=== PATIENT | male | born 1965 | race African-American/Black ===

== ENCOUNTER 2019-03-23 15:42 | Emergency (ER) | payer BC ==
[2019-03-23] MEDS ORDERED: ACETAMINOPHEN 325 MG TABLET PO ONE (15:59)
[2019-03-23 16:14] VITALS: BP 129/88
--- NOTE | 2019-03-23 17:00 | RADIOLOGY REPORT (SQ) ---
EXAM DESCRIPTION: KNEE RIGHT 4 VIEWS COMPLETED DATE/TIME: 03/23/2019 4:21 pm REASON FOR STUDY: stepped in hole, Medial knee pain COMPARISON: None. NUMBER OF VIEWS: Four views right knee. LIMITATIONS: None. FINDINGS: There is no acute or significant bone, joint or soft tissue abnormality. OTHER: No other significant finding. IMPRESSION: NORMAL STUDY. TECHNICAL DOCUMENTATION: JOB ID: [id number] Reading location - IP/workstation name: [email or web address]
--- NOTE | 2019-03-23 17:03 | ER Document Report ---
HPI - HPI Patient complains to provider of: r knee pain Time Seen by Provider: 03/23/19 15:50 Onset: Yesterday Onset/Duration: Gradual Quality of pain: Achy Pain Level: 3 Context: Patient presents complaining of right knee pain. Patient states he stepped into a hole yesterday twisting his right knee. Associated Symptoms: Other - Right knee pain Exacerbated by: Standing, Movement, Walking Relieved by: Denies Similar symptoms previously: No Recently seen / treated by doctor: No - ROS ROS below otherwise negative: Yes Systems Reviewed and Negative: Yes All other systems reviewed and negative - CONSTITUTIONAL Constitutional: DENIES: Fever - NEURO Neurology: DENIES: Weakness - GASTROINTESTINAL Gastrointestinal: DENIES: Nausea - MUSCULOSKELETAL Musculoskeletal: REPORTS: Extremity pain - R knee - DERM Skin Color: Normal Skin Problems: None Past Medical History - General Information source: Patient - Social History Smoking Status: Current Every Day Smoker Smoking Education Provided: Yes Frequency of alcohol use: None Drug Abuse: None Occupation: [employer] service Lives with: Family Family History: None Patient has suicidal ideation: No Patient has homicidal ideation: No - Past Medical History Cardiac Medical History: Reports: Hx Hypertension Renal/ Medical History: Denies: Hx Peritoneal Dialysis GI Medical History: Reports: Hx Ulcerative Colitis Surgical Hx: Negative - Immunizations Hx Diphtheria, Pertussis, Tetanus Vaccination: Yes Vertical Provider Document - CONSTITUTIONAL Agree With Documented VS: Yes Exam Limitations: No Limitations General Appearance: WD/WN, No Apparent Distress - INFECTION CONTROL TRAVEL OUTSIDE OF THE [place] IN LAST 30 DAYS: No - HEENT HEENT: Atraumatic, Normocephalic - NECK Neck: Normal Inspection - RESPIRATORY Respiratory: No Respiratory Distress - CARDIOVASCULAR Pulses: Normal: Dorsalis pedis - MUSCULOSKELETAL/EXTREMETIES Musculoskeletal/Extremeties: MAEW, FROM, Tender - Right knee joint tenderness to medial compartment and medial joint line, no effusion, no laxity with varus or valgus maneuvers. Normal skin color and temperature overlying joint., No Edema - NEURO Level of Consciousness: Awake, Alert, Appropriate - DERM Integumentary: Warm, Dry, No Rash Course - Vital Signs Vital signs: Temp Pulse Resp BP Pulse Ox 98.2 F 80 18 129/88 H 99 03/23/19 16:06 03/23/19 16:06 03/23/19 16:06 03/23/19 16:06 03/23/19 16:06 - Diagnostic Test Radiology reviewed: Pending, Image reviewed Procedures - Immobilization Right Knee Pre-Proc Neuro Vasc Exam: Normal Immobilizer type: Knee immobilizer Performed by: PCT Post-Proc Neuro Vasc Exam: Normal Alignment checked and good: Yes Discharge - Discharge Clinical Impression: Right knee sprain Qualifiers: Encounter type: initial encounter Involved ligament of knee: unspecified ligament Qualified Code(s): S83.91XA - Sprain of unspecified site of right knee, initial encounter Condition: Stable Disposition: HOME, SELF-CARE Instructions: Use of Crutches ([facility]), Ice & Elevation ([facility]), Knee Immobilizing Splint ([facility]), Sprained Knee ([facility]) Additional Instructions: Return immediately for any new or worsening symptoms Followup with your primary care provider, call tomorrow to make a followup appointment Weightbearing as tolerated Follow-up with orthopedics for any persistent pain or problems Prescriptions: Diclofenac Sodium 4 gm TP QID PRN #100 gel..gram. PRN Reason: Forms: Return to Work Referrals: LINO WALLER MD [Primary Care Provider] - Follow up as needed [facility] [Provider Group] - Follow up tomorrow
== END 2019-03-23 17:05 | disposition home or self-care (01) ==
LOC: ER 15:42
DX: S83.91XA Sprain of unspecified site of right knee, initial encounter (principal); M25.561 Pain in right knee; X50.0XXA Overexertion from strenuous movement or load, initial encounter; Y93.H9 Activity, other involving exterior property and land maintenance, building and construction; I10 Essential (primary) hypertension; F17.200 Nicotine dependence, unspecified, uncomplicated
CPT/HCPCS: 99283; 73564; L1830

== ENCOUNTER 2019-07-18 17:04 | Emergency (ER) | payer BC ==
[2019-07-18 17:57] VITALS: BP 122/81
--- NOTE | 2019-07-18 19:25 | ER Document Report ---
HPI - HPI Patient complains to provider of: right shoulder pain x 1 week and right hip pain Time Seen by Provider: 07/18/19 19:19 Onset/Duration: Gradual, Persistent Quality of pain: Achy Severity: Moderate Pain Level: 2 Context: 53-year-old male with a history of hypertension, ulcerative colitis, iron deficiency anemia, here for right shoulder/neck pain x1 week. 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 He also complains of right low back pain that radiates down to his right hip. No numbness, weakness, or tingling. No fall or trauma. No prior history of sciatica. He has not sought care until now. His primary care doctor is Dr. Deras. He is right-handed. He does take occasional Motrin which spears s help a little bit. No fevers, saddle anesthesia, incontinence, or any other sx. No pain anywhere else. he is able to walk. Denies any UTI symptoms. No testicular pain/swelling. No history of renal stones. No other complaints at this time. No history of diabetes or asthma. no spinal surgeries. no iv drug use. no blood thinners otherwise. not on any immunosuppressants. No recent antibiotics or steroids. Exacerbated by: Movement Relieved by: Remaining still Similar symptoms previously: Yes Recently seen / treated by doctor: No - ROS Systems Reviewed and Negative: Yes All other systems reviewed and negative - To include 10 systems, unless mentioned in the hpi. Past Medical History - General Information source: Patient - 2 - Social History Smoking Status: Current Every Day Smoker Chew tobacco use (# tins/day): No Frequency of alcohol use: None Drug Abuse: None Lives with: Spouse/Significant other Family History: Reviewed & Not Pertinent Patient has suicidal ideation: No Patient has homicidal ideation: No - Past Medical History Cardiac Medical History: Reports: Hx Hypertension Endocrine Medical History: Denies: Hx Diabetes Mellitus Type 1, Hx Diabetes Mellitus Type 2 Renal/ Medical History: Denies: Hx Peritoneal Dialysis GI Medical History: Reports: Hx Ulcerative Colitis - Immunizations Immunizations up to date: Yes Hx Diphtheria, Pertussis, Tetanus Vaccination: Yes Vertical Provider Document - CONSTITUTIONAL Agree With Documented VS: Yes Exam Limitations: No Limitations Notes: Vital signs: All vital signs were reviewed per nursing notes. Gen. Appearance: Nontoxic, patient of stated age, sitting comfortably in the bed. pleasant, middle aged black male, smiling, speaking in full sentences, in no sign of pain or resp distress, nontoxic, at bedside Psychiatric: Alert and oriented x3, pleasant and very conversational, normal affect. Skin: Warm, pink, dry, normal turgor, no rashes. no grossly visible overlying skin changes or signs of trauma. HEENT: Normocephalic, atraumatic, no tang signs. no raccoon eyes, pupils are equal and reactive to light, extraocular muscles intact, mucosal membranes moist, pink conjunctiva, no pharyngeal erythema no tonsillar exudate. no drooling, tripoding, voice change or stridor, uvula midline. tongue protrudes midline Neck: Supple, no midline tenderness, no step-offs or deformities. There is mild tenderness to the right trapezius and right paracervical musculature. Spasm noted. Palpation here reproduces patient's pain exactly. No overlying skin changes to suggest trauma. No lymphadenopathy. full rom and full strength. no meningeal signs. no signs of central cord syndrome CV: Regular rate and rhythm, Lungs: Clear to auscultation bilaterally, no wheezes, symmetrical chest rise. no chest wall ttp Abdomen: Soft, nontender, nondistended, good bowel sounds, no rebound, rigid ity, guarding or peritoneal signs. No CVA tenderness bilaterally. This is a nonacute abdomen. No tenderness over McBurney's point. no grossly visible or palpable abdominal hernias Genitalia: pt deferred Rectal: deferred; however, no sign of loss of bowel or bladder, no soiling of clothing Back: There is increased tissue tension over the paralumbar musculature on the right side. Palpation to this region did reproduce patient's pain exactly. There is no tenderness to palpation along the midline of the cervical, thoracic or lumbar spine. There are no step-offs or deformities noted. no overlying skin changes. Extremities: Distal pulses two out of four, good capillary refill, no edema, cyanosis or clubbing. full rom and full strength in all extremities with pain on right hip flexion and extension. no swelling or ttp of the extremities. normal gait. good hand leather shaver. neg reggie sign. neg stewart squeeze. no drop foot. no shortening or rotation of the limbs. no obvious deformities. Negative drop can test. Neuro: Cranial nerves II through XII intact, normal speech, cerebellar function intact. Symmetric smile and faces. reflexes wnl. motor and sensation intact to light touch. - INFECTION CONTROL TRAVEL OUTSIDE OF THE [place] IN LAST 30 DAYS: No Course - Re-evaluation Re-evalutation: 07/18/19 19:45 Pt here for likely right cervical radiculopathy/strain and right low back pain with right sided sciatica x 1 wk. no fall or trauma or mildine spinal ttp or signs/sx of cauda equina, spinal cord involvement, or central cord syndrome so no imaging was done. he responded well to tx here. will dc with robaxin and prednisone. gave medication precautions. tylenol prn pain. ice/heat to the area. advised to f/u with pcp in 1-2 days. return for any worsening symptoms. vss. well appearing. satting well on ra. neurononfocal. pt understands and agrees to plan. On reexam, pt improved with tx listed. remained stable. nontoxic. well appearing. pain controlled. tolerating po. requesting to go home. Documentation achieved through voice recording which may lead to some occasional accidental typographical errors. Extensive efforts have been made to proof read documentation to make sure these are the least as possible. - Vital Signs Vital signs: Temp Pulse Resp BP Pulse Ox 98.4 F 65 16 122/81 100 07/18/19 17:55 07/18/19 17:55 07/18/19 17:55 07/18/19 17:55 07/18/19 17:55 Temp Pulse Resp BP Pulse Ox 07/18/19 17:55 98.4 F 65 16 122/81 100 Discharge - Discharge Clinical Impression: Right cervical radiculopathy, Strain of cervical portion of right trapezius muscle Low back pain with right-sided sciatica Qualifiers: Chronicity: acute Back pain laterality: right Qualified Code(s): M54.41 - Lumbago with sciatica, right side Condition: Good Disposition: HOME, SELF-CARE Instructions: Neck Injury (Cervical Strain) ([facility]), Sciatica ([facility]) Additional Instructions: Follow-up with PCP in 1 to 2 days. Ice/heat to the area. Do not work, drive, operate machinery while taking the muscle relaxers. Return for any worsening symptoms. tylenol as needed for any pain. take the medication as prescribed. light duty for the next 2 days with no heavy lifting and if still having symptoms after the next two days he needs to be reevaluated by his pcp. Prescriptions: Prednisone [Deltasone 10 mg Tablet] 40 mg PO DAILY 5 Days #20 tablet Methocarbamol [Robaxin 500 mg Tablet] 1,000 mg PO QID PRN #40 tablet PRN Reason: For Pain Forms: Return to Work Referrals: LINO WALLER MD [Primary Care Provider] - Follow up in 3-5 days
[2019-07-18] MEDS ORDERED: PREDNISONE 20 MG TABLET PO ONE (19:47)
[2019-07-18] MEDS ORDERED: METHOCARBAMOL 500 MG TABLET PO ONE (19:47)
== END 2019-07-18 20:43 | disposition home or self-care (01) ==
LOC: ER 17:04
DX: S16.1XXA Strain of muscle, fascia and tendon at neck level, initial encounter (principal); M54.12 Radiculopathy, cervical region; M54.41 Lumbago with sciatica, right side; M25.511 Pain in right shoulder; M25.551 Pain in right hip; M54.2 Cervicalgia; X58.XXXA Exposure to other specified factors, initial encounter; I10 Essential (primary) hypertension; F17.200 Nicotine dependence, unspecified, uncomplicated
CPT/HCPCS: 99283; J7512

== ENCOUNTER 2019-10-13 07:00 | Emergency (ER) | payer BC ==
[2019-10-13 07:47] LABS: APPEARANCE,URINE CLOUDY; BILIRUBIN,URINE NEGATIVE (NEGATIVE); COLOR,URINE YELLOW; GLUCOSE, URINE NEGATIVE (NEGATIVE); KETONES,URINE NEGATIVE (NEGATIVE); LEUKOCYTE ESTERASE,URINE NEGATIVE (NEGATIVE); NITRITE,URINE NEGATIVE (NEGATIVE); PROTEIN,URINE 30 mg/dL (NEGATIVE); URINE SPECIFIC GRAVITY 1.024; UROBILINOGEN,URINE NEGATIVE mg/dL (<2.0)
--- NOTE | 2019-10-13 08:28 | ER Document Report ---
ED General - General Chief Complaint: Abdominal Pain Stated Complaint: HIP AND LOWER BACK PAIN Time Seen by Provider: 10/13/19 08:09 Primary Care Provider: LINO WALLER MD [Primary Care Provider] - Follow up in 3-5 days Notes: 54-year-old male with history of ulcerative colitis, BPH, hypertension presents with groin pain for 3 days. Patient has been having urinating with dribbling. Patient denies any dysuria, hematuria, frequency, abdominal pain nausea/vomiting, diarrhea, constipation, testicular swelling/pain, penile swelling/pain/discharge. Patient denies ever having difficulty urinating. Patient states he does work in [employer] and does a lot of heavy lifting. Patient states he was recently put on Flomax 0.4 mg due to his prostate last month. TRAVEL OUTSIDE OF THE [place] IN LAST 30 DAYS: No - Related Data Allergies/Adverse Reactions: No Known Allergies Allergy (Verified 03/23/19 15:43) Past Medical History - Social History Smoking Status: Former Smoker Family History: Reviewed & Not Pertinent Patient has suicidal ideation: No Patient has homicidal ideation: No - Past Medical History Cardiac Medical History: Reports: Hx Hypertension Endocrine Medical History: Denies: Hx Diabetes Mellitus Type 1, Hx Diabetes Mellitus Type 2 Renal/ Medical History: Denies: Hx Peritoneal Dialysis GI Medical History: Reports: Hx Ulcerative Colitis - Immunizations Immunizations up to date: Yes Hx Diphtheria, Pertussis, Tetanus Vaccination: Yes Review of Systems - Review of Systems Notes: Constitutional: Negative for fever. HENT: Negative for sore throat. Eyes: Negative for visual changes. Cardiovascular: Negative for chest pain. Respiratory: Negative for shortness of breath. Gastrointestinal: Negative for abdominal pain, vomiting or diarrhea. Genitourinary: Positive for groin pain and dribbling with urinating. Negative for dysuria. Musculoskeletal: Negative for back pain. Skin: Negative for rash. Neurological: Negative for headaches, weakness or numbness. 10 point ROS negative except as marked above and in HPI. Physical Exam - Vital signs Vitals: Temp Pulse Resp BP Pulse Ox 97.2 F 74 16 170/103 H 99 10/13/19 07:04 10/13/19 07:04 10/13/19 07:04 10/13/19 07:04 10/13/19 07:04 - Notes Notes: Drawing Box Tender Malou PCT GENERAL: Well-appearing, well-nourished and in no acute distress. HEAD: Atraumatic, normocephalic. EYES: Extraocular movements intact, sclera anicteric, conjunctiva are normal. NECK: Normal range of motion, supple without lymphadenopathy or JVD. LUNGS: Breath sounds clear to auscultation bilaterally and equal. No wheezes rales or rhonchi. HEART: Regular rate and rhythm without murmurs, rubs or gallops. ABDOMEN: Soft, nontender. No guarding, no rebound. No masses appreciated. : Mild swelling to right inguinal canal with mild tenderness. No swelling to testicles. EXTREMITIES: Normal range of motion, no pitting or edema. No clubbing or cyanosis. NEUROLOGICAL: Cranial nerves II through XII grossly intact. Normal speech, normal gait. PSYCH: Normal mood, normal affect. SKIN: Warm, Dry, normal turgor, no rashes or lesions noted. Course - Re-evaluation Re-evalutation: 10/13/19 54-year-old male presents with groin pain that started Efrain. Patient does a lot of the lifting at work. Patient also states he has been having some dribbling with urinating. Patient denies any dysuria, hematuria, nausea or vomiting, abdominal pain, fever/chills. Abdomen exam soft nontender. Mild swelling noted to right inguinal canal with mild tenderness. UA shows protein without infection. Ultrasound of scrotum ordered. 10/13/19 13:37 US shows epidydimitis. UpToDate consulted, recommendation for Levoquin 500 mg PO once daily for 10 days. 10/13/19 13:38 Discussed results with pt and pt's . Return precautions discussed. Close follow up with PCP. Pt given prescription for Levaquin 500 mg once daily for 10 days. Pt voices understanding and agrees with plan of care. - Vital Signs Vital signs: Temp Pulse Resp BP Pulse Ox 97.7 F 74 18 139/110 H 99 10/13/19 13:45 10/13/19 13:45 10/13/19 13:45 10/13/19 13:45 10/13/19 13:45 - Laboratory Laboratory results interpreted by me: 10/13/19 07:28 Urine Protein 30 H Urine Ascorbic Acid 20 H Discharge - Discharge Clinical Impression: Epididymitis Condition: Stable Disposition: HOME, SELF-CARE Instructions: Epididymitis ([facility]) Additional Instructions: Please take Levaquin as prescribed and finish all doses even if you feel better. Please follow-up with your primary care doctor in 3 to 5 days. Return to ER for any worsening symptoms including fever, difficulty urinating, worsening pain, vomiting or any other symptoms that are concerning to you. Prescriptions: Levofloxacin [Levaquin 500 mg Tablet] 500 mg PO DAILY #10 tablet Forms: Parent Work Note Referrals: LINO WALLER MD [Primary Care Provider] - Follow up in 3-5 days
--- NOTE | 2019-10-13 12:34 | RADIOLOGY REPORT (SQ) ---
EXAM DESCRIPTION: U/S SCROTUM W/DOPPLER COMPLETED DATE/TIME: 10/13/2019 11:46 am REASON FOR STUDY: groin pain, difficulty urinating COMPARISON: None. TECHNIQUE: Static and realtime warner scale imaging of the scrotum and testes. Selected color Doppler and spectral images recorded to document blood flow. LIMITATIONS: None. FINDINGS: RIGHT: TESTICLE: The right testicle measures 3.7 x 2.5 x 1.9 cm and on Doppler there is intact arterial infl ow and venous outflow within the testicular stroma. There is no testicular mass. EPIDIDYMIS: The epididymis measures 1.9 x 1 x 0.9 cm and it is heterogeneous in echotexture. There i s an anechoic structure within the epididymal head that measures 5 x 4 x 4 mm consistent with a cyst. HYDROCELE OR VARICOCELE: No. HERNIA OR EXTRA-TESTICULAR MASS: No. OTHER: There is a prominent right inguinal lymph node that measures 8 mm in transverse diameter. LEFT: TESTICLE: The right testicle measures 3.2 x 2.2 x 1.7 cm and on Doppler there is intact arterial infl ow and venous outflow within the testicular stroma. There is no testicular mass. EPIDIDYMIS: The epididymis measures 0.7 x 0.5 x 1.1 cm. There is an anechoic structure in the epidid ymal head that measures 3 x 3 x 3 mm consistent with a cyst. HYDROCELE OR VARICOCELE: Varicocele that measures up to 3 mm with Valsalva maneuvers. HERNIA OR EXTRA-TESTICULAR MASS: No. OTHER: No other finding. IMPRESSION: 1. Heterogeneity of the epididymis - correlate clinically for epididymitis. 2. No testicular mass or evidence of testicular torsion. 3. Left varicocele. TECHNICAL DOCUMENTATION: JOB ID: [id number] [employer]- All Rights Reserved Reading location - IP/workstation name: [email or web address]
[2019-10-13 13:45] VITALS: BP 139/110
--- NOTE | 2019-10-13 15:06 | EKG REPORT ---
SEVERITY:- ABNORMAL ECG - SINUS RHYTHM PROBABLE LEFT ATRIAL ABNORMALITY LEFT VENTRICULAR HYPERTROPHY : Confirmed by: Idalia Jean-Baptiste MD 13-Oct-2019 15:06:10
== END 2019-10-13 13:46 | disposition home or self-care (01) ==
LOC: ER 07:00
DX: N45.1 Epididymitis (principal); R10.9 Unspecified abdominal pain; M54.5 Low back pain; N39.43 Post-void dribbling; R10.30 Lower abdominal pain, unspecified; I10 Essential (primary) hypertension; Z87.891 Personal history of nicotine dependence
CPT/HCPCS: 76870; 81001; 93005; 93010; 93976; 99284

== ENCOUNTER → 2019-12-22 | Outpatient (CLI) | payer OTHER ==
[2019-12-22 12:57] LABS: ABSOLUTE BASOPHILS # (AUTO) 0.1 10^3/uL (0.0-0.2); ABSOLUTE EOSINOPHILS # (AUTO) 0.1 10^3/uL (0.0-0.6); ABSOLUTE LYMPHOCYTES (AUTO) 1.1 10^3/uL (0.5-4.7); ABSOLUTE MONOCYTES (AUTO) 0.4 10^3/uL (0.1-1.4); ABSOLUTE NEUT (AUTO) 2.7 10^3/uL (1.7-8.2); BASOPHILS % (AUTO) 1.3 % (0-2); EOSINOPHILS % (AUTO) 3.2 % (0-6); HEMOGLOBIN 13.7 g/dL (13.5-17.0); LYMPHOCYTES % (AUTO) 24.5 % (13-45); MEAN CORPUSCULAR HEMOGLOBIN 29.1 pg (27.0-33.4); MEAN CORPUSCULAR HGB CONC 33.4 g/dL (32.0-36.0); MEAN CORPUSCULAR VOLUME 87 fl (80-97); MONOCYTES % (AUTO) 8.8 % (3-13); PLATELET COUNT 188 10^3/uL (150-450); RED BLOOD COUNT 4.72 10^6/uL (4.35-5.55); RED CELL DISTRIBUTION WIDTH 13.5 % (11.5-14.0); SEGMENTED NEUTROPHILS % (AUTO) 62.2 % (42-78); TOTAL CELLS COUNTED % (AUTO) 100 %; WHITE BLOOD COUNT 4.4 10^3/uL (4.0-10.5)
[2019-12-22 13:07] LABS: APPEARANCE,URINE CLEAR; BILIRUBIN,URINE NEGATIVE (NEGATIVE); COLOR,URINE YELLOW; GLUCOSE, URINE NEGATIVE (NEGATIVE); KETONES,URINE NEGATIVE (NEGATIVE); LEUKOCYTE ESTERASE,URINE NEGATIVE (NEGATIVE); NITRITE,URINE NEGATIVE (NEGATIVE); PROTEIN,URINE NEGATIVE (NEGATIVE); URINE SPECIFIC GRAVITY 1.025; UROBILINOGEN,URINE NEGATIVE mg/dL (<2.0)
[2019-12-22 13:17] LABS: ALBUMIN 4.4 g/dL (3.5-5.0); ALKALINE PHOSPHATASE 82 U/L (38-126); ANION GAP 9 (5-19); ASPARTATE AMINO TRANSFERASE 29 U/L (17-59); BILIRUBIN,DIRECT 0.2 mg/dL (0.0-0.4); BILIRUBIN,TOTAL 0.5 mg/dL (0.2-1.3); BLOOD UREA NITROGEN 15 mg/dL (7-20); CALCIUM 9.3 mg/dL (8.4-10.2); CARBON DIOXIDE 33 mmol/L (22-30); CHLORIDE 103 mmol/L (98-107); CHOLESTEROL 141.69 mg/dL (0-200); GLUCOSE 75 mg/dL (75-110); POTASSIUM 3.8 mmol/L (3.6-5.0); TOTAL PROTEIN 7.9 g/dL (6.3-8.2); TRIGLYCERIDES 77 mg/dL (<150)
[2019-12-22 13:28] LABS: DIRECT LDL 64 mg/dL (<100)
== END ==
LOC: CCC 11:25
DX: I10 Essential (primary) hypertension (principal); D50.9 Iron deficiency anemia, unspecified; K51.90 Ulcerative colitis, unspecified, without complications
CPT/HCPCS: 36415; 80053; 80061; 81001; 83735; 84153; 85025

== ENCOUNTER 2020-05-07 19:24 | Emergency (ER) | payer OTHER ==
--- NOTE | 2020-05-07 20:26 | ER Document Report ---
HPI - HPI Time Seen by Provider: 05/07/20 20:09 Pain Level: 3 Context: Patient is a 54-year-old male who presents to the emergency department with a chief complaint of bilateral hand pain. Patient states that his pain started about 2 weeks ago. He denies any injury. 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 Patient states that he tried using arthritis gloves, but had little of his symptoms. She has past medical history of hypertension. - ROS Systems Reviewed and Negative: Yes All other systems reviewed and negative - CONSTITUTIONAL Constitutional: DENIES: Fever, Chills - EENT EENT: DENIES: Sore Throat, Ear Pain - RESPIRATORY Respiratory: DENIES: Trouble Breathing, Coughing - URINARY Urinary: DENIES: Dysuria, Urgency - MUSCULOSKELETAL Musculoskeletal: REPORTS: Extremity pain - Bilateral hand - DERM Skin Color: Normal Skin Problems: None Past Medical History - General Information source: Patient - Social History Smoking Status: Current Every Day Smoker Family History: Reviewed & Not Pertinent - Past Medical History Cardiac Medical History: Reports: Hx Hypertension Endocrine Medical History: Denies: Hx Diabetes Mellitus Type 1, Hx Diabetes Mellitus Type 2 Renal/ Medical History: Denies: Hx Peritoneal Dialysis GI Medical History: Reports: Hx Ulcerative Colitis - Immunizations Immunizations up to date: Yes Hx Diphtheria, Pertussis, Tetanus Vaccination: Yes Vertical Provider Document - CONSTITUTIONAL Agree With Documented VS: Yes Exam Limitations: No Limitations General Appearance: No Apparent Distress - INFECTION CONTROL TRAVEL OUTSIDE OF THE [place] IN LAST 30 DAYS: No - HEENT HEENT: Atraumatic, Normocephalic, PERRLA - RESPIRATORY Respiratory: No Respiratory Distress - CARDIOVASCULAR Cardiovascular: Regular Rate, Regular Rhythm Pulses: Normal: Radial - MUSCULOSKELETAL/EXTREMETIES Musculoskeletal/Extremeties: FROM, Tender - NEURO Level of Consciousness: Awake, Alert, Appropriate Motor/Sensory: No Motor Deficit, No Sensory Deficit - DERM Integumentary: Warm, Dry, No Rash Course - Re-evaluation Re-evalutation: 05/07/20 21:58 Hand x-rays are unremarkable. Patient has normal strength in all extremities. Patient is able to flex and extend all digits with no difficulty. Capillary refill less than 3 seconds. Radial pulse 2+. No vascular compromise noted. Patient will be started on Tylenol to help with possible arthritis pain. Follow-up precautions were given. Verbal discharge instructions were given to the patient. They verbalized understanding. They are stable for discharge. - Vital Signs Vital signs: Temp Pulse Resp BP Pulse Ox 97.9 F 69 16 100/77 99 05/07/20 20:08 05/07/20 19:47 05/07/20 19:47 05/07/20 19:47 05/07/20 19:47 Discharge - Discharge Clinical Impression: Bilateral hand pain Condition: Stable Disposition: HOME, SELF-CARE Additional Instructions: You were seen today in the emergency department for hand pain. Your pain is most likely due to your line of work. Take extra strength Tylenol for your pain. Follow-up with your primary care provider in regards to this visit. Forms: Return to Work Referrals: [facility] [Primary Care Provider] - Follow up as needed
--- NOTE | 2020-05-07 21:14 | RADIOLOGY REPORT (SQ) ---
XR HAND 3 VIEWS BILATERAL CLINICAL STATEMENT: bilateral hand pain COMPARISON: None FINDINGS: Bony alignment is anatomic. There is no fracture or dislocation. The soft tissues are unremarkable. No significant advanced degenerative changes. IMPRESSION: No fracture.
[2020-05-07 22:04] VITALS: BP 118/79
== END 2020-05-07 22:03 | disposition home or self-care (01) ==
LOC: ER 19:24
DX: M79.642 Pain in left hand (principal); M79.641 Pain in right hand; I10 Essential (primary) hypertension; F17.200 Nicotine dependence, unspecified, uncomplicated
CPT/HCPCS: 99283

== ENCOUNTER → 2020-07-29 | Outpatient (CLI) | payer OTHER ==
[2020-07-29 13:08] LABS: ABSOLUTE EOSINOPHILS # (AUTO) 0.2 10^3/uL (0.0-0.6); ABSOLUTE LYMPHOCYTES (AUTO) 1.2 10^3/uL (0.5-4.7); ABSOLUTE MONOCYTES (AUTO) 0.4 10^3/uL (0.1-1.4); ABSOLUTE NEUT (AUTO) 2.3 10^3/uL (1.7-8.2); BASOPHILS % (AUTO) 1.2 % (0-2); EOSINOPHILS % (AUTO) 3.8 % (0-6); HEMATOCRIT 40.5 % (37.9-51.0); HEMOGLOBIN 13.5 g/dL (13.5-17.0); LYMPHOCYTES % (AUTO) 29.1 % (13-45); MEAN CORPUSCULAR HEMOGLOBIN 29.1 pg (27.0-33.4); MEAN CORPUSCULAR HGB CONC 33.3 g/dL (32.0-36.0); MEAN CORPUSCULAR VOLUME 87 fl (80-97); MONOCYTES % (AUTO) 10.5 % (3-13); PLATELET COUNT 192 10^3/uL (150-450); RED BLOOD COUNT 4.64 10^6/uL (4.35-5.55); RED CELL DISTRIBUTION WIDTH 14.3 % (11.5-14.0); SEGMENTED NEUTROPHILS % (AUTO) 55.4 % (42-78); TOTAL CELLS COUNTED % (AUTO) 100 %; WHITE BLOOD COUNT 4.2 10^3/uL (4.0-10.5)
--- NOTE | 2020-07-29 13:29 | RADIOLOGY REPORT (SQ) ---
EXAM DESCRIPTION: HAND BILATERAL 2 VIEWS IMAGES COMPLETED DATE/TIME: 07/29/2020 12:43 pm REASON FOR STUDY: SILAS HAND PAIN Z00.00 [facility]ULT MEDICAL EXAM W/O ABNORMAL FI K51.91 3 ULCERATIVE COLITIS, UNSPECIFIED WITH FISTULA M79.643 PAIN IN UNSPECIFIED HAND COMPARISON: None. EXAM PARAMETERS: NUMBER OF VIEWS: Two views right hand. Two views left hand. TECHNIQUE: AP and lateral radiographic images acquired of bilateral hands. LIMITATIONS: None. FINDINGS: RIGHT HAND: MINERALIZATION: Normal. BONES: No acute fracture or dislocation. No worrisome bone lesions. No significant osteophytes. JOINTS: No erosions. No christine-articular osteopenia. No chondrocalcinosis. SOFT TISSUES: No swelling. No calcifications. OTHER: No other significant finding. LEFT HAND: MINERALIZATION: Normal. BONES: No acute fracture or dislocation. No worrisome bone lesions. No significant osteophytes. JOINTS: No erosions. No christine-articular osteopenia. No chondrocalcinosis. SOFT TISSUES: No swelling. No calcifications. OTHER: No other significant finding. IMPRESSION: NEGATIVE STUDY BILATERAL HANDS. NO ACUTE POST-TRAUMATIC CHANGES. NO EXPLANATION FOR PAIN . TECHNICAL DOCUMENTATION: JOB ID: [id number] 2010 [employer]- All Rights Reserved Reading location - IP/workstation name: [email or web address]
[2020-07-29 13:39] LABS: ALBUMIN 4.3 g/dL (3.5-5.0); ALKALINE PHOSPHATASE 80 U/L (38-126); ANION GAP 7 (5-19); ASPARTATE AMINO TRANSFERASE 41 U/L (17-59); BILIRUBIN,DIRECT 0.3 mg/dL (0.0-0.4); BILIRUBIN,TOTAL 0.7 mg/dL (0.2-1.3); BLOOD UREA NITROGEN 14 mg/dL (7-20); CALCIUM 9.2 mg/dL (8.4-10.2); CARBON DIOXIDE 27 mmol/L (22-30); CHLORIDE 102 mmol/L (98-107); GLUCOSE 90 mg/dL (75-110); POTASSIUM 4.8 mmol/L (3.6-5.0); TOTAL PROTEIN 7.1 g/dL (6.3-8.2)
[2020-07-29 13:59] LABS: ERYTHROCYTE SEDIMENTATION RATE 16 mm/hr (0-20)
== END ==
LOC: CCC 11:56
PROVIDERS: ATTEND Family Medicine
DX: Z00.00 Encounter for general adult medical examination without abnormal findings (principal); M79.641 Pain in right hand; M79.642 Pain in left hand; K51.913 Ulcerative colitis, unspecified with fistula; Z79.899 Other long term (current) drug therapy
CPT/HCPCS: 36415; 80048; 80076; 85025; 85652; 86200; 86431; 86701; 86900; 86901